=== PATIENT | male | born 1990 | race Two or more races ===

== ENCOUNTER 2022-12-13 08:03 | Emergency (ER) | payer OTHER, SELFPAY ==
[2022-12-13 08:08] VITALS: BP 141/85; PULSE 86; RESP 18; TEMP 36.6; O2SAT 97; BMI 37.7
--- NOTE | 2022-12-13 08:35 | XR_ITS ---
[facility] [id number] Patient Name: SANG HAMMOND MRN: [id number] date: 1990 Sex: M Assigned Patient Location: ED.MAIN Current Patient Location: ED.MAIN Accession/Order Number: [id number] Exam Date: 12/13/2022 08:40 Report Date: 12/13/2022 09:35 At the request of: CHRISTIANO METCALF Procedure: XR lumbar spine min 4V EXAMINATION: XR lumbar spine min 4V HISTORY: pain COMPARISON: No relevant comparison available. FINDINGS: BONES: Moderate widespread spondylosis and facet osteoarthritis. No visible acute bony abnormality. DISC SPACES: Normal. No significant disc height narrowing, subluxation, or endplate abnormality. PARASPINOUS: Negative. No paraspinous abnormality is seen. OTHER: Negative. XR/XR lumbar spine min 4V IMPRESSION: Moderate degenerative changes Electronically authenticated by: RICHARD LARRY Date: 12/13/2022 09:35
--- NOTE | 2022-12-13 09:22 | ED_ITS ---
HPI - Back Pain/Injury General Chief Complaint: Back Pain/Injury Stated Complaint: LOWER BACK PAIN Time Seen by Provider: 12/13/22 08:35 Source: patient and family Mode of arrival: walk-in History of Present Illness HPI Narrative: this patient's here for evaluation of low back pain. 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 He has not had previous back surgery or ongoing back problems. 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 He has not missed work because of a back problem. He has no fever shakes or chills. No loss of bowel or bladder function. The pain is in his right lower lumbar area and radiates to the right hip area. There is no tingling or numbness. There is no loss of muscle strength. He does feel little bit better after taking some anti-inflammatories. He did put some ice on it. He does occasionally see a chiropractor for minor aches and pains and for spinal alignment. He's otherwise good health with no recent weight loss. No other bony symptomatology or abnormalities. Does not have any pain radiating below the hip area or into the groin Related Data Home Medications Medication Instructions Recorded Confirmed No Known Home Medications 12/13/22 12/13/22 Allergies Allergy/AdvReac Type Severity Reaction Status Date / Time No Known Drug Allergies Allergy Verified 12/13/22 08:11 Exam Narrative Exam Narrative: patient rates his pain at a 2/10 at this time very pleasant here with his spouse. Moves about cautiously. Does have discomfort when shifting about on the cart. Vital signs are noted. He is afebrile. In a sitting position his deep tendon reflexes are brisk and equal at patella and Achilles. Extensor hallucis longus function is normal. Straight leg raising test paresis some discomfort but no radiculopathy. Examination of the back shows no gross kyphoscoliosis but when he stands he can see that his left leg is shorter than the right. There is no evidence of shingles or skin lesions over his back. Heel walking and toe walking are normal. He is limited with flexion at approximately thirty degrees and has discomfort. Constitutional Vital Signs, click to edit/add: Last Vital Signs Temp 98 F 12/13/22 08:08 Pulse 86 12/13/22 08:08 Resp 18 12/13/22 08:08 BP 141/85 12/13/22 08:08 Pulse Ox 97 12/13/22 08:08 O2 Del Method Room Air 12/13/22 08:08 Course Vital Signs Vital signs: Vital Signs Temperature 98 F 12/13/22 08:08 Pulse Rate 86 12/13/22 08:08 Respiratory Rate 18 12/13/22 08:08 Blood Pressure 141/85 12/13/22 08:08 Pulse Oximetry 97 12/13/22 08:08 Oxygen Delivery Method Room Air 12/13/22 08:08 Temperature 98 F 12/13/22 08:08 Pulse Rate 86 12/13/22 08:08 Respiratory Rate 18 12/13/22 08:08 Blood Pressure 141/85 12/13/22 08:08 Pulse Oximetry 97 12/13/22 08:08 Oxygen Delivery Method Room Air 12/13/22 08:08 MDM - Back Pain/Injury MDM Narrative Medical decision making narrative: patient presents with a simple mechanical type strain symptomatology to the back with no neurological symptomatology or findings. Plain imaging appears be normal and awaiting the final radiologist report. He does a lot of physical labor so recommending complete rest for the next 48-72 hours and we will additionally suggest NSAIDs with muscle relaxant. He was advised to follow up with primary care doctor by early midweek. I believe chiropractic evaluation may be helpful early next week but not at this time. Differential Diagnosis Differential diagnosis: Likely strain of lumbar region Discharge Plan Discharge Chief Complaint: Back Pain/Injury Clinical Impression: Strain of lumbar region Patient Disposition: Home, Self-Care Time of Disposition Decision: 09:27 Prescriptions / Home Meds: No Action No Known Home Medications Instructions: Acute Low Back Pain (ED) Additional Instructions: Anaprox/Robaxin Stand Alone Forms: Portal Instructions Referrals: Daniella Rivera MD [Primary Care Provider] - 1 week Discharge Date/Time: 12/13/22 09:45
== END 2022-12-13 09:45 | disposition home or self-care (01) ==
PROVIDERS: Emergency Provider Emergency Medicine Emergency Medical Services; PCP Family Medicine
DX: S39.012A Strain of muscle, fascia and tendon of lower back, initial encounter (principal); X50.9XXA Other and unspecified overexertion or strenuous movements or postures, initial encounter
CPT/HCPCS: 72110; 99283